=== PATIENT | female | born 1980 | race Caucasian/White ===

== ENCOUNTER 2021-03-01 08:18 | Observation (INO) ==
[2021-03-01] MEDS ORDERED: ONDANSETRON INJ 2 MG/ML 2 ML VIAL IV STA (08:36)
[2021-03-01] MEDS ORDERED: SODIUM CHLORIDE 0.9% 1000ML 1,000 ML IV STA (08:36)
[2021-03-01] MEDS: MoRPHine SULFATE 4 MG/ML 1 ML CARP\\VIAL IV PRN ×3 (08:44→11:38)
[2021-03-01 08:51] LABS: Basophils # (auto) 0.03 K/uL (0-0.2); Basophils % (auto) 0.3 %; Hemoglobin 13.4 g/dL (12.0-16.0); Immature Granulocytes # (auto) 0.03 K/uL (0.00-0.02); Immature Granulocytes % (auto) 0.3 %; Lymphocytes # (auto) 0.95 K/uL (1.2-3.4); Lymphocytes % (auto) 8.8 %; Mean Corpuscular Hemoglobin 28.3 pg (25-34); Mean Corpuscular Hgb Conc 33.5 g/dL (32-36); Mean Corpuscular Volume 84.6 fL (80-100); Mean Platelet Volume 10.1 fL (7.4-10.4); Monocytes # (auto) 0.29 K/uL (0.11-0.59); Monocytes % (auto) 2.7 %; Neutrophils # (auto) 9.45 K/uL (1.4-6.5); Neutrophils % (auto) 87.9 %; Platelet Count 228 K/uL (130-400); RDW Coefficient of Variation 13.1 % (11.5-14.5); RDW Standard Deviation 40.1 fL (36.4-46.3); Red Blood Count 4.73 M/uL (4.2-5.4); White Blood Count 10.75 K/uL (4.8-10.8)
[2021-03-01 08:58] LABS: Appearance Urine Turbid (Clear); Bacteria Urine Automated 1+ (Negative); Bilirubin Urine Negative (Negative); Blood Urine 1+ (Negative); Color Urine Yellow; Epithelial Cell Urine Auto >30 /lpf (0-5); Glucose Urine UA Negative (Negative); Ketones Urine 3+ (Negative); Leukocyte Esterase Urine Trace (Negative); Nitrite Urine Negative (Negative); RBC Urine Automated >30 /hpf (0-4); Specific Gravity Urine 1.025 (1.000-1.030); Urobilinogen Urine Negative (Negative); pH Urine 8.5 (4.5-7.5)
[2021-03-01 08:59] LABS: Protein Urine Trace (Negative)
[2021-03-01 09:10] LABS: Albumin Level 4.3 gm/dl (3.4-5.0); BUN Creatinine Ratio 16.9 (10-20); Est GFR (Non-African American) 88.9 ml/min; Potassium 3.4 mmol/L (3.5-5.1)
[2021-03-01 09:13] LABS: Albumin Globulin Ratio 1.3 (0.9-2); Bilirubin,Total 0.7 mg/dl (0.2-1); Globulin 3.4 gm/dl (2.5-4.0); Total Protein 7.7 gm/dl (6.4-8.2)
[2021-03-01 09:14] LABS: Pregnancy Test, Serum Negative (Negative)
--- NOTE | 2021-03-01 09:17 | Emergency Department Note ---
Impression & Plan Hydronephrosis with urinary obstruction due to ureteral calculus, Acute right flank pain, Liver mass ED Provider Note NAME: THOMAS COPELAND AGE: 40 SEX: F : 1980 ARRIVES VIA: Walk-In INFORMANT: Patient, ED PROVIDER(S): Winston Hay DO CHIEF COMPLAINT: Flank pain HPI: The patient is a 40-year-old female who presented to the emergency department with her for an evaluation of flank pain. The patient describes a burning sensation on his right flank. 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 She is unsure if she hurt her back necessarily but ever since that time has had right-sided back pain. She states the pain does radiate into her right hip and sometimes down her right leg. She denies having any numbness or weakness in the legs. She has had pain so bad that she becomes nauseated. She denies having any fevers. She denies having any recent trauma. The patient states pain is worsened with ambulation as well as bending forward. She is not been seen by her primary care physician for the symptoms. The patient states that pain is moderate to severe and worsens with any movement. She has tried medications at home without relief. The patient has noticed some difficulty urinating but states that ever since she had children she has noticed similar difficulty urinating. She denies having any hematuria. She denies having any dysuria. ROS: See above HPI for pertinent positives & negatives. A total of 10 systems reviewed and were otherwise negative. PAST MEDICAL HISTORY: See Below PAST SURGICAL HISTORY: See Below FAMILY HISTORY: See Below SOCIAL HISTORY: See Below HOME MEDICATIONS: See Below ALLERGIES: See Below VITALS: See Below PHYSICAL EXAMINATION: GENERAL: The patient is awake and alert. The patient is very anxious appearing and appears to be in significant pain. EYES: The conjunctivae are clear. The pupils are round and reactive. EARS, NOSE, MOUTH AND THROAT: The nose is without any evidence of any deformity. NECK: The neck is nontender and supple. RESPIRATORY: Normal respiratory effort is noted there is no evidence of wheezing rhonchi or rales CARDIOVASCULAR: Regular rate and rhythm noted there no murmurs rubs or gallops normal S1 normal S2. GASTROINTESTINAL: The abdomen is soft. Abdomen is nontender. BACK: There was some midline tenderness in the upper lumbar spine. There was no step-off. Range of motion appears intact. There was significant right CVA tenderness to percussion. MUSCULOSKELETAL/EXTREMITIES: There is no evidence of gross deformity full range of motion is noted in the hips and shoulders. SKIN: There is no obvious evidence of any rash. There are no petechiae, pallor or cyanosis noted. NEUROLOGIC: Patient is awake alert and oriented x3 strength is symmetric patellar reflexes are 2+ bilaterally. Great toe raise is symmetric. Achilles tendon reflexes are 2+ bilaterally. MEDICAL DECISION MAKING: The patient is a 40-year-old female who presented to the emergency department for an evaluation of severe right flank pain. The patient was treated with IV fluids and IV pain medication in the emergency department. She was reevaluated multiple times. I discussed the patient's laboratory and radiographic studies with her. She was found to have signs of ureteral obstruction secondary to a distal ureteral calculus. Her pain was very difficult to manage in the emergency department. She required multiple doses of pain medication. For this reason I did discuss her case with the on-call [facility] hospitalist. They have agreed to evaluate the patient in the emergency department for further management and disposition. The patient was also found to have an incidental mass in her liver. This will require further characterization with other imaging. Initially CAT scan of the liver was ordered in the emergency department but after evaluation by the admitting team they feel they can facilitate MRI better as either an inpatient or as an outpatient as to limit the patient's radiation dose. I do feel this is a good option. Triage Nursing notes reviewed. Prior medical records reviewed Vital Signs: reviewed and remarkable for tachycardia. Differential diagnosis: Renal colic, UTI, appendicitis, diverticulitis, mesenteric ischemia, aortic pathology, infections, inflammatory bowel disease, PUD, biliary pathology, as well as other pathologies. ER treatment provided: See below Diagnostics interpreted by me: ECG: none Cardiac Monitoring: An order was placed for continuous cardiac monitoring. The monitor shows a rate of 103 bpm with sinus tachycardia rhythm. Laboratory studies: As stated above and show below. Imaging studies: See below Consultation(s): none Past Med/Surg History Medical History Allergic rhinitis Anxiety disorder Hypothyroidism Incomplete right bundle branch block PMDD (premenstrual dysphoric disorder) Surgical History No significant past surgical history Family History Mother Ovarian cancer Grandfather (Maternal) Colorectal cancer Denies family history of Prostate cancer Diabetes Myocardial infarction Breast cancer Lung cancer Stroke Social History Smoking Status: Never smoker Second Hand Exposure: No; Hx Alcohol Use: No Hx Substance Use: No Preferred Language: Indonesian Visual Impairment: Limited Hearing Ability: Normal Width Stripper Required: No marital status: Current Living Situation: Spouse and Family Current Living Situation Comment: son and daughter current occupational status: employed How many Children do You have: 2 Feels Safe at Home: Yes Childhood Exposure to Second-Hand Smoke: No caffeine: Yes Dental Care, Regularly: Yes Physical Activity Frequency: 1-2 Times per Week Seatbelt Use: always Sunscreen Use: Yes Allergies Allergies Allergy/AdvReac Type Severity Reaction Status Date / Time tetracycline Allergy Severe DIFFICULTY Verified 03/01/21 10:41 SWALLOWING Bactrim Allergy Unknown . Verified 04/07/14 18:17 sulfamethoxazole Allergy Unknown Verified 03/01/21 10:41 trimethoprim Allergy Unknown Verified 03/01/21 10:41 paroxetine [From Paxil] AdvReac Severe suicidal ~ Unverified 03/01/21 10:41 [place] like someone else was in her head citalopram AdvReac Mild Nausea Verified 03/01/21 10:41 Home Meds Home Medications Medication Instructions Recorded Confirmed cetirizine 10 mg tablet (Zyrtec) 10 mg PO DAILY PRN 11/12/20 03/01/21 multivitamin (Daily Multi-Vitamin) 1 tab PO QAM 11/12/20 03/01/21 vitamin B complex (B-Complex) 1 tab PO QAM 11/12/20 03/01/21 yizjwbh-[id number]-[id number] 333 mg-133 1 tab PO BIDM 03/01/21 03/01/21 mg-8.3 mg tablet levothyroxine 100 mcg tablet 0 mcg PO QDD 03/01/21 03/01/21 levothyroxine 88 mcg tablet 88 mcg PO DAILYBB 03/01/21 03/01/21 (Synthroid) tumeric 100 mg-alicia 150 mg-olive 1 cap PO QAM 03/01/21 03/01/21 50 mg-oreg 150 mg-caprylate capsule Previous Rx's Medication Instructions Recorded albuterol sulfate 90 mcg/actuation 1 inh INHALATION QID PRN #8.5 g 05/21/20 aerosol inhaler (ProAir HFA) buspirone 5 mg tablet 5 mg PO TID PRN #90 tab 02/06/21 drospirenone 3 mg-ethinyl 1 tab PO DAILY #28 tab 02/23/21 estradiol 0.03 mg tablet (Yanni (28)) Results & Data (ED) Vital Signs Vital Signs - 24 hr 03/01/21 08:19 03/01/21 09:11 03/01/21 10:00 Temperature 36.8 C Temperature Source Temporal Artery Scan Pulse Rate 95 H 88 Pulse Rate [Left Finger] 65 Pulse Rhythm Regular Regular Pulse Rhythm [Left Finger] Regular Pulse Strength Normal Pulse Strength [Left Finger] Normal Respiratory Rate 18 20 20 Respiratory Effort / Characteristics Non-Labored Spontaneous Non-Labored Spontaneous Respiratory Depth Normal Normal Respiratory Pattern Regular Regular Blood Pressure 136/79 Blood Pressure [Left Arm] 132/62 Blood Pressure Mean 98 Blood Pressure Mean [Left Arm] 85 Blood Pressure Position Sitting Blood Pressure Position [Left Arm] Sitting Pulse Oximetry 100 100 100 Oxygen Delivery Method Room Air Room Air Room Air Sepsis Recent Fever Within 48 Hours No Sepsis New/Unexplained Change in Mental Status No Sepsis Action Taken by Nursing No Action Required 03/01/21 12:55 Temperature Temperature Source Pulse Rate Pulse Rate [Left Finger] 103 H Pulse Rhythm Pulse Rhythm [Left Finger] Regular Pulse Strength Pulse Strength [Left Finger] Normal Respiratory Rate 18 Respiratory Effort / Characteristics Non-Labored Spontaneous Respiratory Depth Normal Respiratory Pattern Regular Blood Pressure Blood Pressure [Left Arm] 128/74 Blood Pressure Mean Blood Pressure Mean [Left Arm] 92 Blood Pressure Position Blood Pressure Position [Left Arm] Sitting Pulse Oximetry 100 Oxygen Delivery Method Room Air Sepsis Recent Fever Within 48 Hours Sepsis New/Unexplained Change in Mental Status Sepsis Action Taken by Retirement Medications Current Medication List: was personally reviewed by me Laboratory Data Attestation: I reviewed the patient's lab results. Result diagrams: 03/01/21 08:42 03/01/21 08:42 Lab Results 03/01/21 03/01/21 03/01/21 Range/Units 08:42 08:42 08:42 WBC 10.75 (4.8-10.8) K/uL RBC 4.73 (4.2-5.4) M/uL Hgb 13.4 (12.0-16.0) g/dL Hct 40.0 (37-47) % MCV 84.6 (80-100) fL MCH 28.3 (25-34) pg MCHC 33.5 (32-36) g/dL RDW Std Deviation 40.1 (36.4-46.3) fL RDW Coeff of Bettie 13.1 (11.5-14.5) % Plt Count 228 (130-400) K/uL MPV 10.1 (7.4-10.4) fL Immature Gran % (Auto) 0.3 % Neut % (Auto) 87.9 % Lymph % (Auto) 8.8 % [place] % (Auto) 2.7 % Eos % (Auto) 0.0 % Baso % (Auto) 0.3 % Neut # (Auto) 9.45 H (1.4-6.5) K/uL Lymph # (Auto) 0.95 L (1.2-3.4) K/uL [place] # (Auto) 0.29 (0.11-0.59) K/uL Eos # (Auto) 0.00 (0-0.5) K/uL Baso # (Auto) 0.03 (0-0.2) K/uL Immature Gran # (Auto) 0.03 H (0.00-0.02) K/uL Sodium 137 (136-145) mmol/L Potassium 3.4 L (3.5-5.1) mmol/L Chloride 105 (98-107) mmol/L Carbon Dioxide 24 (21-32) mmol/L Anion Gap 9.0 (3-11) BUN 14 (7-18) mg/dl Creatinine 0.82 (0.6-1.2) mg/dl Est Cr Clr Drug Dosing 78.0 ml/min Est GFR ( Amer) 103.0 ml/min Est GFR (Non-Af Amer) 88.9 ml/min BUN/Creatinine Ratio 16.9 (10-20) Glucose 113 H (70-99) mg/dl Calcium 9.0 (8.5-10.1) mg/dl Total Bilirubin 0.7 (0.2-1) mg/dl AST 11 L (15-37) U/L ALT 17 (12-78) U/L Alkaline Phosphatase 53 (45-117) U/L Total Protein 7.7 (6.4-8.2) gm/dl Albumin 4.3 (3.4-5.0) gm/dl Globulin 3.4 (2.5-4.0) gm/dl Albumin/Globulin Ratio 1.3 (0.9-2) Lipase 148 (73-393) U/L TSH (0.300-4.500) uIu/ml HCG, Qual Negative (Negative) Urine Color Urine Appearance (Clear) Urine pH (4.5-7.5) Ur Specific [place] (1.000-1.030) Urine Protein (Negative) Urine Glucose (UA) (Negative) Urine Ketones (Negative) Urine Blood (Negative) Urine Nitrite (Negative) Urine Bilirubin (Negative) Urine Urobilinogen (Negative) Ur Leukocyte Esterase (Negative) Urine WBC (Auto) (0-5) /hpf Urine RBC (Auto) (0-4) /hpf U Hyaline Cast (Auto) (0-5) /lpf U Epithel Cells (Auto) (0-5) /lpf Urine Bacteria (Auto) (Negative) COVID-19 Eval Order 03/01/21 03/01/21 03/01/21 Range/Units 08:42 08:42 12:45 WBC (4.8-10.8) K/uL RBC (4.2-5.4) M/uL Hgb (12.0-16.0) g/dL Hct (37-47) % MCV (80-100) fL MCH (25-34) pg MCHC (32-36) g/dL RDW Std Deviation (36.4-46.3) fL RDW Coeff of Bettie (11.5-14.5) % Plt Count (130-400) K/uL MPV (7.4-10.4) fL Immature Gran % (Auto) % Neut % (Auto) % Lymph % (Auto) % [place] % (Auto) % Eos % (Auto) % Baso % (Auto) % Neut # (Auto) (1.4-6.5) K/uL Lymph # (Auto) (1.2-3.4) K/uL [place] # (Auto) (0.11-0.59) K/uL Eos # (Auto) (0-0.5) K/uL Baso # (Auto) (0-0.2) K/uL Immature Gran # (Auto) (0.00-0.02) K/uL Sodium (136-145) mmol/L Potassium (3.5-5.1) mmol/L Chloride (98-107) mmol/L Carbon Dioxide (21-32) mmol/L Anion Gap (3-11) BUN (7-18) mg/dl Creatinine (0.6-1.2) mg/dl Est Cr Clr Drug Dosing ml/min Est GFR ( Amer) ml/min Est GFR (Non-Af Amer) ml/min BUN/Creatinine Ratio (10-20) Glucose (70-99) mg/dl Calcium (8.5-10.1) mg/dl Total Bilirubin (0.2-1) mg/dl AST (15-37) U/L ALT (12-78) U/L Alkaline Phosphatase (45-117) U/L Total Protein (6.4-8.2) gm/dl Albumin (3.4-5.0) gm/dl Globulin (2.5-4.0) gm/dl Albumin/Globulin Ratio (0.9-2) Lipase (73-393) U/L TSH 2.770 (0.300-4.500) uIu/ml HCG, Qual (Negative) Urine Color Yellow Urine Appearance Turbid A (Clear) Urine pH 8.5 H (4.5-7.5) Ur Specific [place] 1.025 (1.000-1.030) Urine Protein Trace H (Negative) Urine Glucose (UA) Negative (Negative) Urine Ketones 3+ H (Negative) Urine Blood 1+ H (Negative) Urine Nitrite Negative (Negative) Urine Bilirubin Negative (Negative) Urine Urobilinogen Negative (Negative) Ur Leukocyte Esterase Trace H (Negative) Urine WBC (Auto) 1-5 (0-5) /hpf Urine RBC (Auto) >30 H (0-4) /hpf U Hyaline Cast (Auto) 1-5 (0-5) /lpf U Epithel Cells (Auto) >30 H (0-5) /lpf Urine Bacteria (Auto) 1+ H (Negative) COVID-19 Eval Order Covid19 at [facility] Administered Medications Hydromorphone HCl (Hydromorphone Inj 0.5 Mg/0.5 Ml Syr) 0.5 mg IV Q15M PRN PRN Reason: Pain Stop: 03/15/21 11:38 Last Admin: 03/01/21 11:42 Dose: 0.5 mg Documented by: [id number] Sodium Chloride (Nss 1000ml) 2,000 mls @ 999 mls/hr IV .Q2H1M ONE Stop: 03/01/21 14:54 Last Admin: 03/01/21 14:00 Dose: 999 mls/hr Documented by: [id number] Discontinued Medications Sodium Chloride (Nss 1000ml) 1,000 mls @ 999 mls/hr IV .Q1H1M STA Stop: 03/01/21 09:36 Last Infusion: 03/01/21 11:47 Dose: 0 mls/hr Documented by: [id number] Admin: 03/01/21 08:44 Dose: 999 mls/hr Documented by: [id number] Ceftriaxone Sodium (Rocephin) 2,000 mg in 70 mls @ 140 mls/hr IV NOW STA Stop: 03/01/21 13:15 Last Admin: 03/01/21 13:22 Dose: 140 mls/hr Documented by: [id number] Morphine Sulfate (Morphine Sulfate 4 Mg/Ml 1 Ml Carp\Vial) 4 mg IV Q15M PRN PRN Reason: Pain Stop: 03/15/21 08:35 Last Admin: 03/01/21 11:38 Dose: 4 mg Documented by: [id number] Admin: 03/01/21 10:25 Dose: 4 mg Documented by: [id number] Admin: 03/01/21 08:44 Dose: 4 mg Documented by: [id number] Ondansetron HCl (Ondansetron Inj 2 Mg/Ml 2 Ml Vial) 4 mg IV NOW STA Stop: 03/01/21 08:37 Last Admin: 03/01/21 08:44 Dose: 4 mg Documented by: [id number] Tamsulosin HCl (Tamsulosin Hcl 0.4 Mg Cap) 0.4 mg PO NOW STA Stop: 03/01/21 14:12 Last Admin: 03/01/21 14:20 Dose: Not Given Documented by: [id number] Tamsulosin HCl (Tamsulosin Hcl 0.4 Mg Cap) Confirm Administered Dose 0.4 mg .ROUTE .Principle Power ONE Stop: 03/01/21 13:49 Last Admin: 03/01/21 13:51 Dose: 0.4 mg Documented by: [id number] Imaging Data Radiologist's Impression: Abdomen/Pelvis CT 03/01/21 08:36 CT SCAN OF THE ABDOMEN AND PELVIS WITHOUT IV CONTRAST CLINICAL HISTORY: Right flank pain. COMPARISON STUDY: No priors. TECHNIQUE: CT scan of the abdomen and pelvis is performed from the lung bases to the proximal femora. Images are reviewed in the axial, sagittal, and coronal planes. IV contrast was not administered for this examination. A dose lowering technique was utilized adhering to the principles of ALARA. CT DOSE: 274.69 mGy.cm FINDINGS: Lung bases: The heart is normal in size and without pericardial effusion. The lung bases are clear. Liver: The unenhanced liver is normal in size, contour, and attenuation. There is no intrahepatic biliary ductal dilatation. There are 2 hepatic cysts which measure up to 3.8 cm. There is an approximately 5 x 5 x 5 cm low-attenuation homogeneous mass lesion suggested inferior to the largest cyst in the inferior right lobe. This is partially exophytic and best seen on image #170. Gallbladder: Unremarkable. Spleen: Normal in size and attenuation. Pancreas: Unremarkable. Adrenal glands: Unremarkable. Kidneys: The unenhanced kidneys are normal in size. A 5 mm obstructing calculus protruding from the right vesicoureteral junction seen on image #356. This causes mild right hydroureteronephrosis. There is associated right-sided perinephric stranding and fluid. There is an additional 2 mm nonobstructing right renal calculus. A 4 mm nonobstructing calculus is noted in the left kidney. There is no left-sided hydronephrosis. There is no evidence of contour deforming renal mass lesion. Abdominal vasculature: The abdominal aorta is normal in course and caliber. Bowel: The small bowel and colon are normal in course and caliber. A portion of the normal appendix is seen on image #274. The appendix is not visualized in entirety. Peritoneum: There is no intraperitoneal free air or abdominal ascites. There is a fat-containing umbilical hernia. Lymphadenopathy: None. Pelvic viscera: The bladder, uterus, and adnexa are normal as visualized. A small volume of free fluid is seen in the cul-de-sac. Skeletal structures: No lytic or blastic lesions are seen. There is a roberta transitional left lumbosacral segment. IMPRESSION: 1. There is a 5 mm obstructing calculus protruding from the right vesicoureteral junction. This causes mild to moderate right hydroureteronephrosis, with associated right-sided perinephric stranding and fluid. 2. Additional nonobstructing renal calculi are seen bilaterally. 3. There is an approximately 5 cm partially exophytic mass lesion arising from the inferior right lobe of the liver. There is an adjacent 3.0 cm cystic stru cture which may also be part of this lesion. This is pathologically indeterminant, and follow-up with a contrast-enhanced liver protocol CT or MRI is recommended for further evaluation. 4. Additional findings as above. ACT 112: Negative or not required by law. Electronically signed by: Eric Holley M.D. 03/01/2021 11:03 AM Discharge Plan Visit Data Chief Complaint: Back Injury/Pain Stated Complaint: LOWER BACK PAIN ED Provider: Winston Hay Discharge Problem: Hydronephrosis with urinary obstruction due to ureteral calculus, Acute right flank pain, Liver mass Patient Disposition: Being Evaluated by Hospitalist Forms Stand Alone Forms: [employer] Prescriptions Prescriptions: No Action buspirone 5 mg tablet 5 mg PO TID PRN (Reason: anxiety) Qty: 90 RF: 2 albuterol sulfate [ProAir HFA] 90 mcg/actuation HFA aerosol inhaler 1 inh inhalation QID PRN (Reason: shortness of breath or wheezing) Qty: 8.5 RF: 1 multivitamin [Daily Multi-Vitamin] Tablet 1 tab PO QAM RF: 0 vitamin B complex [B-Complex] Tablet 1 tab PO QAM RF: 0 cetirizine [Zyrtec] 10 mg tablet 10 mg PO DAILY PRN (Reason: Allergy Symptoms) RF: 0 drospirenone-ethinyl estradiol [Yanni (28)] 3-0.03 mg tablet 1 tab PO DAILY Qty: 28 RF: 5 levothyroxine [L-Thyroxine] 100 mcg Tablet 0 mcg PO QDD RF: 0 pksdqlz-skoozznua-xotm 333-133-8.3 mg Tablet 1 tab PO BIDM RF: 0 tbupohb-lkmf-qhimk-oreg-capryl 100 mg-150 mg- 50 mg-150 mg Capsule 1 cap PO QAM RF: 0 levothyroxine [Synthroid] 88 mcg tablet 88 mcg PO DAILYBB RF: 0 Referrals Referrals: Hugh Serrato MD [Primary Care Provider] -
--- NOTE | 2021-03-01 11:05 | CT Scan Report ---
CT SCAN OF THE ABDOMEN AND PELVIS WITHOUT IV CONTRAST CLINICAL HISTORY: Right flank pain. COMPARISON STUDY: No priors. TECHNIQUE: CT scan of the abdomen and pelvis is performed from the lung bases to the proximal femora. Images are reviewed in the axial, sagittal, and coronal planes. IV contrast was not administered for this examination. A dose lowering technique was utilized adhering to the principles of ALARA. CT DOSE: 274.69 mGy.cm FINDINGS: Lung bases: The heart is normal in size and without pericardial effusion. The lung bases are clear. Liver: The unenhanced liver is normal in size, contour, and attenuation. There is no intrahepatic deena iary ductal dilatation. There are 2 hepatic cysts which measure up to 3.8 cm. There is an approximate ly 5 x 5 x 5 cm low-attenuation homogeneous mass lesion suggested inferior to the largest cyst in the inferior right lobe. This is partially exophytic and best seen on image #170. Gallbladder: Unremarkable. Spleen: Normal in size and attenuation. Pancreas: Unremarkable. Adrenal glands: Unremarkable. Kidneys: The unenhanced kidneys are normal in size. A 5 mm obstructing calculus protruding from the r ight vesicoureteral junction seen on image #356. This causes mild right hydroureteronephrosis. There is associated right-sided perinephric stranding and fluid. There is an additional 2 mm nonobstructing right renal calculus. A 4 mm nonobstructing calculus is noted in the left kidney. There is no left-s ided hydronephrosis. There is no evidence of contour deforming renal mass lesion. Abdominal vasculature: The abdominal aorta is normal in course and caliber. Bowel: The small bowel and colon are normal in course and caliber. A portion of the normal appendix i s seen on image #274. The appendix is not visualized in entirety. Peritoneum: There is no intraperitoneal free air or abdominal ascites. There is a fat-containing umbi lical hernia. Lymphadenopathy: None. Pelvic viscera: The bladder, uterus, and adnexa are normal as visualized. A small volume of free flui d is seen in the cul-de-sac. Skeletal structures: No lytic or blastic lesions are seen. There is a hemitransitional left lumbosacr al segment. IMPRESSION: 1. There is a 5 mm obstructing calculus protruding from the right vesicoureteral junction. This cause s mild to moderate right hydroureteronephrosis, with associated right-sided perinephric stranding and fluid. 2. Additional nonobstructing renal calculi are seen bilaterally. 3. There is an approximately 5 cm partially exophytic mass lesion arising from the inferior right lob e of the liver. There is an adjacent 3.0 cm cystic structure which may also be part of this lesion. T his is pathologically indeterminant, and follow-up with a contrast-enhanced liver protocol CT or MRI is recommended for further evaluation. 4. Additional findings as above. ACT 112: Negative or not required by law. Electronically signed by: Eric Holley M.D. 03/01/2021 11:03 AM
[2021-03-01] MEDS ORDERED: HYDROmorphone INJ 0.5 MG/0.5 ML SYR IV PRN ×2 (11:39→16:15)
[2021-03-01] MEDS ORDERED: cefTRIAXone SODIUM 2,000 MG/70 ML BAG IV STA (12:46)
[2021-03-01] MEDS ORDERED: SODIUM CHLORIDE 0.9% 1000ML 2,000 ML IV ONE (12:54)
--- NOTE | 2021-03-01 12:54 | History & Physical Report ---
Date of Service March 01, 2021 Assessment & Plan (1) Ureterolithiasis: Plan: NSS additional 2L bolus now then LR @ 150ml/hr, start tamsulosin 0.4mg PO, pain relief with acetaminophen/toradol/dilaudid NPO pending urology consult Strain all urine and send for urine stone analysis if any filtrate (2) SARS-CoV-2 positive: Plan: Asymptomatic. CXR clear. Lungs CTAB. Possible false positive. Recommend patient in negative pressure room rather than COVID sharif. (3) Hydronephrosis with urinary obstruction due to ureteral calculus: Plan: Consult urology as above (4) Liver mass: Plan: Incidental finding. Follow with outpatient MRI liver protocol to better evaluat e. Incidental from admission diagnosis. (5) Hypothyroidism: Plan: TSH 2.77 Continue usual levothyroxine dosing (6) Anxiety disorder: Plan: Continue Buspar 5mg TID PRN Plan: VTE Prophylaxis - low risk Diet - NPO pending urology evaluation Disposition - observation status on med/surg Admission and Anticipated Discharge Date Admission Date: March 01, 2021 History of Present Illness Chief Complaint: Right flank pain Primary Care Provider: MD Tammy Miller 40 year old female who presents to the ER with right flank pain. 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 However the right flank pain progressively got worse. Severity 10/10 at worse. Never had a kidney stone before. Getting hot but no objective fever. No dysuria. In the ER after the patient was seen her SARS-COV-2 test was reported positive. She has already had COVID-19 in April 2020. She is asymptomatic from this currently. Allergies Allergy/AdvReac Type Severity Reaction Status Date / Time tetracycline Allergy Severe DIFFICULTY Verified 03/01/21 10:41 SWALLOWING Bactrim Allergy Unknown . Verified 04/07/14 18:17 sulfamethoxazole Allergy Unknown Verified 03/01/21 10:41 trimethoprim Allergy Unknown Verified 03/01/21 10:41 paroxetine [From Paxil] AdvReac Severe suicidal ~ Unverified 03/01/21 10:41 [facility] like someone else was in her head citalopram AdvReac Mild Nausea Verified 03/01/21 10:41 Home Medications Medication Instructions Recorded Confirmed Type albuterol sulfate 90 mcg/actuation 1 inh INHALATION QID PRN #8.5 g 05/21/20 03/01/21 Rx aerosol inhaler (ProAir HFA) cetirizine 10 mg tablet (Zyrtec) 10 mg PO DAILY PRN 11/12/20 03/01/21 History multivitamin (Daily Multi-Vitamin) 1 tab PO QAM 11/12/20 03/01/21 History vitamin B complex (B-Complex) 1 tab PO QAM 11/12/20 03/01/21 History buspirone 5 mg tablet 5 mg PO TID PRN #90 tab 02/06/21 03/01/21 Rx drospirenone 3 mg-ethinyl 1 tab PO DAILY #28 tab 02/23/21 03/01/21 Rx estradiol 0.03 mg tablet (Yanni (28)) [id number] 333 mg-133 1 tab PO BIDM 03/01/21 03/01/21 History mg-8.3 mg tablet levothyroxine 100 mcg tablet 0 mcg PO QDD 03/01/21 03/01/21 History levothyroxine 88 mcg tablet 88 mcg PO DAILYBB 03/01/21 03/01/21 History (Synthroid) tumeric 100 mg-alicia 150 mg-olive 1 cap PO QAM 03/01/21 03/01/21 History 50 mg-oreg 150 mg-caprylate capsule Past Med/Surg History Medical History Allergic rhinitis Anxiety disorder Hypothyroidism Incomplete right bundle branch block PMDD (premenstrual dysphoric disorder) Surgical History No significant past surgical history Family History Mother Ovarian cancer Grandfather (Maternal) Colorectal cancer Denies family history of Prostate cancer Diabetes Myocardial infarction Breast cancer Lung cancer Stroke Social History Smoking Status: Never smoker Second Hand Exposure: No; Do You Dip or Chew Tobacco: No; Hx Alcohol Use: No Hx Substance Use: No Preferred Language: Turkmen Visual Impairment: Limited Hearing Ability: Normal Infant Caregiver Required: No Beliefs That Will Affect Care: None marital status: Current Living Situation: Spouse and Family Current Living Situation Comment: son and daughter current occupational status: employed How many Children do You have: 2 Other Information That Helps Us Care for You: No Feels Safe at Home: Yes Safety Concerns: Feels Safe At This Time Childhood Exposure to Second-Hand Smoke: No caffeine: Yes Dental Care, Regularly: Yes Physical Activity Frequency: 1-2 Times per Week Seatbelt Use: always Sunscreen Use: Yes Assistive Devices: Glasses Review of Systems Review of Systems: All systems reviewed & are unremarkable except as noted in HPI & below Physical Exam Constitutional: WD/WN, vitals as above ENMT: external ear and nose normal, oropharynx normal Respiratory: normal respiratory effort, lungs clear to auscultation Cardiovascular: RRR, no murmur, no edema Gastrointestinal (Abdomen): normal bowel sounds, soft, nontender, no hepatosplenomegaly Skin: no rashes, warm and dry Neurologic: moves all extremities and awake; not confused Psychiatric: A+Ox3, euthymic affect Genitourinary: + CVA tenderness (right) Results & Data Results & Data ([facility]) Vital Signs (Past 12 Hours) Vital Signs Temp Pulse Pulse Resp BP BP Pulse Ox 03/01/21 10:00 65 20 132/62 100 03/01/21 09:11 88 20 100 03/01/21 08:19 36.8 C 95 H 18 136/79 100 Diagnostic Findings XR chest 1V portable CLINICAL HISTORY: COVID-19 positive COMPARISON STUDY: Chest radiograph April 15, 2016. FINDINGS: Lung volumes are normal. Lungs are clear. There is no pneumothorax or pleural effusion. Cardiac size is normal. Mediastinal contours are normal. There is no evidence for pulmonary edema. IMPRESSION: No acute cardiopulmonary findings. CT SCAN OF THE ABDOMEN AND PELVIS WITHOUT IV CONTRAST CLINICAL HISTORY: Right flank pain. COMPARISON STUDY: No priors. TECHNIQUE: CT scan of the abdomen and pelvis is performed from the lung bases to the proximal femora. Images are reviewed in the axial, sagittal, and coronal planes. IV contrast was not administered for this examination. A dose lowering technique was utilized adhering to the principles of ALARA. CT DOSE: 274.69 mGy.cm FINDINGS: Lung bases: The heart is normal in size and without pericardial effusion. The lung bases are clear. Liver: The unenhanced liver is normal in size, contour, and attenuation. There is no intrahepatic biliary ductal dilatation. There are 2 hepatic cysts which measure up to 3.8 cm. There is an approximately 5 x 5 x 5 cm low-attenuation diana ogeneous mass lesion suggested inferior to the largest cyst in the inferior right lobe. This is partially exophytic and best seen on image #170. Gallbladder: Unremarkable. Spleen: Normal in size and attenuation. Pancreas: Unremarkable. Adrenal glands: Unremarkable. Kidneys: The unenhanced kidneys are normal in size. A 5 mm obstructing calculus protruding from the right vesicoureteral junction seen on image #356. This causes mild right hydroureteronephrosis. There is associated right-sided perinephric stranding and fluid. There is an additional 2 mm nonobstructing right renal calculus. A 4 mm nonobstructing calculus is noted in the left kidney. There is no left-sided hydronephrosis. There is no evidence of contour deforming renal mass lesion. Abdominal vasculature: The abdominal aorta is normal in course and caliber. Bowel: The small bowel and colon are normal in course and caliber. A portion of the normal appendix is seen on image #274. The appendix is not visualized in entirety. Peritoneum: There is no intraperitoneal free air or abdominal ascites. There is a fat-containing umbilical hernia. Lymphadenopathy: None. Pelvic viscera: The bladder, uterus, and adnexa are normal as visualized. A small volume of free fluid is seen in the cul-de-sac. Skeletal structures: No lytic or blastic lesions are seen. There is a hemitransitional left lumbosacral segment. IMPRESSION: 1. There is a 5 mm obstructing calculus protruding from the right vesicoureteral junction. This causes mild to moderate right hydroureteronephrosis, with associated right-sided perinephric stranding and fluid. 2. Additional nonobstructing renal calculi are seen bilaterally. 3. There is an approximately 5 cm partially exophytic mass lesion arising from the inferior right lobe of the liver. There is an adjacent 3.0 cm cystic structure which may also be part of this lesion. This is pathologically indeterminant, and follow-up with a contrast-enhanced liver protocol CT or MRI is recommended for further evaluation. 4. Additional findings as above. Medications Administered ER Medications Given: NSS 1L bolus Morphine 4mg IV Ondansetron 4mg IV Dilaudid 0.5mg IV Code Status & VTE Plan Code Status Full VTE Prophylaxis Plan VTE Prophylaxis will be ordered: No PG Care Time/CCT Total # of Minutes Spent Total Time Spent with Patient: Total time spent is greater than 50% in coordination of care (as documented) at patient's floor/unit and/or counseling patient: Coding Level of Care Code INT OBSERVATION CARE 50M LVL 2 Diagnoses Ureterolithiasis N20.1 SARS-CoV-2 positive U07.1 Hydronephrosis with urinary obstruction due to ureteral calculus N13.2 Liver mass R16.0 Hypothyroidism E03.9 Anxiety disorder F41.9
[2021-03-01] MEDS ORDERED: TAMSULOSIN HCL 0.4 MG CAP ONE (13:48)
[2021-03-01] MEDS ORDERED: TAMSULOSIN HCL 0.4 MG CAP PO STA (14:11)
[2021-03-01] MEDS ORDERED: ONDANSETRON INJ 2 MG/ML 2 ML VIAL IV PRN (16:15)
[2021-03-01] MEDS ORDERED: KETOROLAC TROMETHAMINE 15 MG/ML VIAL IV PRN (16:15)
[2021-03-01] MEDS ORDERED: CETIRIZINE HCL 10 MG TABLET PO PRN (16:15)
[2021-03-01] MEDS ORDERED: ZINC PO SCH (17:00)
[2021-03-01] MEDS ORDERED: CALCIUM PO SCH (17:00)
[2021-03-01] MEDS ORDERED: MAGNESIUM PO SCH (17:00)
[2021-03-01] MEDS: LACTATED RINGER'S 1,000 ML IV SCH ×2 (17:26→23:02)
--- NOTE | 2021-03-01 17:34 | XRay Report ---
XR chest 1V portable CLINICAL HISTORY: COVID-19 positive COMPARISON STUDY: Chest radiograph April 15, 2016. FINDINGS: Lung volumes are normal. Lungs are clear. There is no pneumothorax or pleural effusion. Car diac size is normal. Mediastinal contours are normal. There is no evidence for pulmonary edema. IMPRESSION: No acute cardiopulmonary findings. ACT 112: Negative or not required by law. Electronically signed by: Drake Case M.D. 03/01/2021 5:33 PM
[2021-03-01] MEDS: ACETAMINOPHEN 325 MG TAB PO PRN ×2 (18:52→23:02)
[2021-03-01] MEDS ORDERED: TAMSULOSIN HCL 0.4 MG CAP PO SCH (21:00)
--- NOTE | 2021-03-01 21:04 | Urology Consultation ---
Date of Consultation March 01, 2021 Assessment & Plan (1) Hydronephrosis with urinary obstruction due to ureteral calculus: Patient has been admitted on the hospitalist service. We recommend proceeding as follows: Provide analgesics Provide antiemetics Hydration with IV fluids Flomax for expulsive therapy Patient has been placed empirically on Rocephin. Urine culture has been obtained and is pending. Antibiotics can be tailored based on results of this culture Patient has been preemptively made n.p.o. after midnight. We will reassess in the morning to determine if cystoscopic intervention will be required. I did discuss with the patient that there is possibility that a 5 mm kidney stone will pass on its own without the need for any further intervention. As noted above she will be reassessed in the morning. History of Present Illness Reason for Consultation: Nephrolithiasis Attending Physician: Darin Garcia MD History of Present Illness Is a 40-year-old female who presented to the [facility] emergency department secondary to right flank pain. The patient said that the pain began last evening. She said that the pain is confined to her right back/flank and radiates to her groin. She said that the pain would come and go without any predictable pattern and she did not note any modifying factors other than some palliation with medicines that were administered in the emergency department. She did have some shakes but denies any chills. She did have a low-grade fever but said her temperature did not exceed 100 degrees. She did have some nausea without vomiting when the pain was present. She notes that she has never had a kidney stone in the past. She denies any dysuria. She also denies any hematuria. Because of her symptomatology she did present to the emergency department as noted above. In the emergency department the patient was noted to be normotensive and afebrile. She did have labs and imaging which I independently reviewed. A chest x-ray showed no evidence of pneumonia. A CT scan of the abdomen and pelvis showed the patient had a 5 mm obstructing calculus at the right ureterovesical junction. This resulted in moderate right hydronephrosis with some right-sided perinephric fat stranding. CBC revealed white blood cell count, hemoglobin, hematocrit, and platelet count were all within the normal range. Immature profile showed her sodium, BUN, and creatinine were within normal range. Potassium was slightly low at 3.4. Urinalysis did show turbid urine with 1+ blood. Nitrite was noted to be negative. Leukocyte Estrace was only trace positive. Patient only had 1-5 white blood cells per high-power field. It is also noteworthy mention the patient had 1+ bacteria. In addition the patient did have a Covid test performed which was noted to be positive. 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 When she is feeling well she does not have any limiting factors such as chest pain or shortness of breath that limit her activity. In addition I did question her about her Covid status. As noted above she did have a positive Covid test. Patient says that she has nonvaccinated for this virus. From a symptomatology standpoint she is asymptomatic as she has not had any loss of her sense of taste or smell. She denies any cough or shortness of breath. She denies any abdominal pain. The best of her knowledge she has not been in close proximity to anyone else who was positive for Covid. At the time of my interview the patient was resting comfortably in bed. She was in no distress. Allergies Allergy/AdvReac Type Severity Reaction Status Date / Time tetracycline Allergy Severe DIFFICULTY Verified 03/01/21 10:41 SWALLOWING Bactrim Allergy Unknown . Verified 04/07/14 18:17 sulfamethoxazole Allergy Unknown Verified 03/01/21 10:41 trimethoprim Allergy Unknown Verified 03/01/21 10:41 paroxetine [From Paxil] AdvReac Severe suicidal ~ Unverified 03/01/21 10:41 [place] like someone else was in her head citalopram AdvReac Mild Nausea Verified 03/01/21 10:41 Home Medications Medication Instructions Recorded Confirmed Type albuterol sulfate 90 mcg/actuation 1 inh INHALATION QID PRN #8.5 g 05/21/20 03/01/21 Rx aerosol inhaler (ProAir HFA) cetirizine 10 mg tablet (Zyrtec) 10 mg PO DAILY PRN 11/12/20 03/01/21 History multivitamin (Daily Multi-Vitamin) 1 tab PO QAM 11/12/20 03/01/21 History vitamin B complex (B-Complex) 1 tab PO QAM 11/12/20 03/01/21 History buspirone 5 mg tablet 5 mg PO TID PRN #90 tab 02/06/21 03/01/21 Rx drospirenone 3 mg-ethinyl 1 tab PO DAILY #28 tab 02/23/21 03/01/21 Rx estradiol 0.03 mg tablet (Yanni (28)) [id number] 333 mg-133 1 tab PO BIDM 03/01/21 03/01/21 History mg-8.3 mg tablet levothyroxine 100 mcg tablet 0 mcg PO QDD 03/01/21 03/01/21 History levothyroxine 88 mcg tablet 88 mcg PO DAILYBB 03/01/21 03/01/21 History (Synthroid) tumeric 100 mg-alicia 150 mg-olive 1 cap PO QAM 03/01/21 03/01/21 History 50 mg-oreg 150 mg-caprylate capsule Patient History Medical History Allergic rhinitis Anxiety disorder Hypothyroidism Incomplete right bundle branch block PMDD (premenstrual dysphoric disorder) Surgical History No significant past surgical history Family History Mother Ovarian cancer Grandfather (Maternal) Colorectal cancer Denies family history of Prostate cancer Diabetes Myocardial infarction Breast cancer Lung cancer Stroke Social History Smoking Status: Never smoker Second Hand Exposure: No; Do You Dip or Chew Tobacco: No; Hx Alcohol Use: No Hx Substance Use: No Preferred Language: Norwegian Visual Impairment: Limited Hearing Ability: Normal 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 Beliefs That Will Affect Care: None marital status: Current Living Situation: Spouse and Family Current Living Situation Comment: son and daughter current occupational status: employed How many Children do You have: 2 Other Information That Helps Us Care for You: No Feels Safe at Home: Yes Safety Concerns: Feels Safe At This Time Childhood Exposure to Second-Hand Smoke: No caffeine: Yes Dental Care, Regularly: Yes Physical Activity Frequency: 1-2 Times per Week Seatbelt Use: always Sunscreen Use: Yes Assistive Devices: Glasses Review of Systems Constitutional: + fever (Low-grade); no chills Eyes: no diplopia Ear, Nose, Mouth, Throat: no ear pain and no sore throat Respiratory: no cough and no dyspnea Cardiovascular: no chest pain Gastrointestinal: + nausea; no abdominal pain and no vomiting Genitourinary: + flank pain (Right sided); no dysuria and no hematuria Musculoskeletal: + back pain (Right flank) Integumentary: no rash Neurologic: no localized weakness Physical Exam Constitutional: well developed and well nourished; no acute distress Eyes: no conjunctival abnormality ENMT: Ears: no hearing impairment and no external ear abnormality Mouth: no oropharynx abnormality Neck: trachea midline Respiratory: normal respiratory effort; no respiratory distress and no labored breathing Cardiovascular: Rate/Rhythm: regular rate and regular rhythm Gastrointestinal (Abdomen): Soft, nontender, nondistended. No pain with palpation. Musculoskeletal: No calf tenderness Skin: no rashes Neurologic: moves all extremities Psychiatric: Orientation: alert and oriented x 3 Genitourinary: + CVA tenderness (Right-sided CVA tenderness noted with percussion.) Results & Data ([facility]) Vital Signs (Past 12 Hours) Vital Signs Temp Pulse Pulse Resp BP Pulse Ox 03/01/21 16:17 36.5 C 92 H 18 125/78 100 03/01/21 15:00 75 16 117/76 100 03/01/21 12:55 103 H 18 128/74 100 03/01/21 10:00 65 20 132/62 100 03/01/21 09:11 88 20 100 PG Care Time/CCT Total # of Minutes Spent Total Time Spent with Patient: Total time spent is greater than 50% in coordination of care (as documented) at patient's floor/unit and/or counseling patient: Coding Level of Care Code 82641 Inpt Consult Level 5 Diagnoses Hydronephrosis with urinary obstruction due to ureteral calculus N13.2
[2021-03-01] MEDS: busPIRone 5 MG TAB PO PRN (21:43)
[2021-03-02] MEDS: LACTATED RINGER'S 1,000 ML IV SCH ×2 (05:36→12:54)
[2021-03-02] MEDS: busPIRone 5 MG TAB PO PRN (05:43)
[2021-03-02] MEDS ORDERED: LEVOTHYROXINE SODIUM 88 MCG TABLET PO SCH (06:30)
[2021-03-02 07:05] LABS: Hematocrit (blood only) 34.7 % (37-47); Hemoglobin 11.7 g/dL (12.0-16.0); Mean Corpuscular Hemoglobin 28.5 pg (25-34); Mean Corpuscular Hgb Conc 33.7 g/dL (32-36); Mean Corpuscular Volume 84.6 fL (80-100); Platelet Count 188 K/uL (130-400); RDW Coefficient of Variation 13.5 % (11.5-14.5); RDW Standard Deviation 41.8 fL (36.4-46.3); White Blood Count 4.78 K/uL (4.8-10.8)
[2021-03-02 07:20] LABS: BUN Creatinine Ratio 10.4 (10-20); Calcium 8.4 mg/dl (8.5-10.1); Creatinine Clr Calc Pharmacy 95.4 ml/min; Est GFR (African American) 126.5 ml/min; Est GFR (Non-African American) 109.2 ml/min; Potassium 3.4 mmol/L (3.5-5.1)
[2021-03-02 07:48] LABS: Basophils # (auto) 0.05 K/uL (0-0.2); Eosinophils # (auto) 0.05 K/uL (0-0.5); Immature Granulocytes # (auto) 0.01 K/uL (0.00-0.02); Immature Granulocytes % (auto) 0.2 %; Lymphocytes # (auto) 1.38 K/uL (1.2-3.4); Lymphocytes % (auto) 28.9 %; Monocytes # (auto) 0.33 K/uL (0.11-0.59); Monocytes % (auto) 6.9 %; Neutrophils # (auto) 2.96 K/uL (1.4-6.5)
--- NOTE | 2021-03-02 08:12 | XRay Report ---
KUB CLINICAL HISTORY: right UVJ stone on CT COMPARISON STUDY: CT of the abdomen and pelvis March 01, 2021. FINDINGS: Small bilateral renal calculi are noted. A 2 mm right pelvic calcification corresponds to a phlebolith by CT. The right ureterovesical junction calculus shown on CT of March 01, 2021 is not identified on this examination. IMPRESSION: 1. Right ureterovesical junction calculus shown on CT of March 01, 2021 no longer identified. 2. Pelvic calcifications represent phleboliths. 3. Small bilateral renal calculi. ACT 112: Negative or not required by law. Electronically signed by: Drake Case M.D. 03/02/2021 8:11 AM
[2021-03-02] MEDS ORDERED: VITAMIN B COMPLEX TAB PO SCH (09:00)
[2021-03-02] MEDS ORDERED: MULTIVITAMIN TAB PO SCH (09:00)
[2021-03-02] MEDS ORDERED: [UNRECOGNIZED DRUG - OTHER] PO SCH (09:00)
[2021-03-02] MEDS: ACETAMINOPHEN 325 MG TAB PO PRN (10:18)
[2021-03-02] MEDS ORDERED: cefTRIAXone SODIUM 2,000 MG in DEXTROSE 5% 50 ML IV SCH (13:00)
[2021-03-02] MEDS ORDERED: POTASSIUM CHLORIDE CRTAB 20 MEQ TABCR PO ONE (13:28)
--- NOTE | 2021-03-02 15:01 | Discharge Summary ---
Date of Service March 02, 2021 Admission HPI Per Admitting Provider Tammy Gucci 40 year old female who presents to the ER with right flank pain. 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 However the right flank pain progressively got worse. Severity 10/10 at worse. Never had a kidney stone before. Getting hot but no objective fever. No dysuria. In the ER after the patient was seen her SARS-COV-2 test was reported positive. She has already had COVID-19 in April 2020. She is asymptomatic from this currently. Admission Exam Per Admitting Provider Constitutional: WD/WN, vitals as above ENMT: external ear and nose normal, oropharynx normal Respiratory: normal respiratory effort, lungs clear to auscultation Cardiovascular: RRR, no murmur, no edema Gastrointestinal (Abdomen): normal bowel sounds, soft, nontender, no hepatosplenomegaly Skin: no rashes, warm and dry Neurologic: moves all extremities and awake; not confused Psychiatric: A+Ox3, euthymic affect Genitourinary: + CVA tenderness (right) Principal Diagnosis Right ureteral stone Discharge Exam Constitutional average body habitus; no acute distress Eyes + anicteric sclerae ENMT Ears: no hearing impairment Neck normal visual inspection Respiratory normal respiratory effort, lungs clear to auscultation Cardiovascular RRR, no murmur, no edema Gastrointestinal (Abdomen) Inspection/Auscultation: normal bowel sounds Percussion/Palpation: + abdomen tender (suprapubic tenderness ) and abdomen soft Musculoskeletal Head/Neck/Chest: normocephalic Skin no rashes, warm and dry Psychiatric A+Ox3, euthymic affect Genitourinary + CVA tenderness (right side ) Discharge Data Allergies Allergy/AdvReac Type Severity Reaction Status Date / Time tetracycline Allergy Severe DIFFICULTY Verified 03/01/21 10:41 SWALLOWING Bactrim Allergy Unknown . Verified 04/07/14 18:17 sulfamethoxazole Allergy Unknown Verified 03/01/21 10:41 trimethoprim Allergy Unknown Verified 03/01/21 10:41 paroxetine [From Paxil] AdvReac Severe suicidal ~ Unverified 03/01/21 10:41 [place] like someone else was in her head citalopram AdvReac Mild Nausea Verified 03/01/21 10:41 Consultations 03/01/21 12:49 ED Decision to Admit Stat 03/01/21 12:50 Consult Urology Routine Ordered Studies 03/01/21 08:36 CT abd pelvis wo con Stat Hospital Course (1) Hypokalemia: Potassium 3.4 this AM. Provided 1 dose of potassium chloride 20meq prior to discharge. (2) Hydronephrosis with urinary obstruction due to ureteral calculus: (3) Acute right flank pain: (4) Ureterolithiasis: 5mm right UVJ stone - supplemental management with IVF, Flomax, acetaminophen/toradol/dilaudid - Urine strainer - UC&S pending - Urology consulted Patient reported feeling much better today. She noted some tenderness of the suprapubic region radiating to the right lower back. She reports this felt more like a dull ache or spasm. She denies any dysuria or hematuria. KUB repeated this AM. No stone identified. Phlebolith was noted. Stone ? passed, although not caught in strainer. Discussed with Dr. So from urology who has not yet seen the patient. No need for surgical intervention at this time as pain has improved, no leukocytosis, Cr normal, and patient is afebrile. She will be discharged home today on Flomax, 3 days of Cipro pending UC&S sensitivities, and Rx for oxycodone PRN for pain. Patient is to f/u with [facility] urology in 10 days after COVID quarantine. (5) Hypothyroidism: TSH 2.77 Continue usual levothyroxine dosing (6) Anxiety disorder: Continue Buspar 5mg TID PRN (7) Liver mass: Incidental finding. Follow-up with primary care. Outpatient MRI liver protocol to better evaluate. Incidental from admission diagnosis. (8) SARS-CoV-2 positive: Asymptomatic. CXR clear. Lungs CTAB. Possible false positive? Patient had COVID in April 2020 and was symptomatic at that time. Recommend patient in negative pressure room rather than COVID sharif. Plan: VTE Prophylaxis - low risk Diet - Regular diet today as no OR intervention planned Disposition - observation status on med/surg Total Time Total Time Spent Total Time Spent (In Minutes): >30 minutes Total Time Includes: Examination of the Patient, Discharge Planning, Medication Reconciliation and Communication With Other Providers Discharge Plan Discharge Items Patient Disposition: Home - Self-Care Reason For Visit: URETEROLITHIASIS Discharge Diagnosis: Right ureteral stone Activity: Resume your previous activity Driving/Machine Use: Do not drive if taking narcotics. Non-emergency contact: Primary Care Provider Call non-emergency contact if: you have any medication questions, your symptoms worsen, your pain is not controlled and you have a fever Follow-up/Referrals: Hugh Serrato MD [Primary Care Provider] - 03/08/21 11:00 am (Stephanie Knox PA-C) Diet: Regular Addtl Attending Provider Instructions: Follow-up with [facility] urology in 10 days after COVID quarantine. Their phone number is [phone]. Follow-up primary care in 10-14 days for incidental liver mass found on CT scan after COVID quarantine. You have tested positive for COVID 19. Please quarantine at home away from family and other individuals for 10 days. Please go to the ED if you develop difficulty breathing. Pending Studies at Discharge: No Stand-Alone Forms: My [facility] Medications and DC Order Prescriptions: New tamsulosin 0.4 mg Capsule 0.4 mg PO HS 10 Days Qty: 10 RF: 0 Continued buspirone 5 mg tablet 5 mg PO TID PRN (Reason: anxiety) Qty: 90 RF: 2 albuterol sulfate [ProAir HFA] 90 mcg/actuation HFA aerosol inhaler 1 inh inhalation QID PRN (Reason: shortness of breath or wheezing) Qty: 8.5 RF: 1 multivitamin [Daily Multi-Vitamin] Tablet 1 tab PO QAM RF: 0 vitamin B complex [B-Complex] Tablet 1 tab PO QAM RF: 0 cetirizine [Zyrtec] 10 mg tablet 10 mg PO DAILY PRN (Reason: Allergy Symptoms) RF: 0 drospirenone-ethinyl estradiol [Yanni (28)] 3-0.03 mg tablet 1 tab PO DAILY Qty: 28 RF: 5 levothyroxine 100 mcg Tablet 0 mcg PO QDD RF: 0 bokthqo-lafjwupan-nvqy 333-133-8.3 mg Tablet 1 tab PO BIDM RF: 0 fjgtfkw-ybfw-whygx-oreg-capryl 100 mg-150 mg- 50 mg-150 mg Capsule 1 cap PO QAM RF: 0 levothyroxine [Synthroid] 88 mcg tablet 88 mcg PO DAILYBB RF: 0 No Action tramadol 50 mg tablet 25 - 50 mg PO BID PRN (Reason: pain) Qty: 30 RF: 0 Discharge Orders: Discharge Order (Routine); Ordered 03/02/21 Ordered By: Amy Pena Admission Data Admit Date/Time: 03/01/21 12:52 Attending Provider: Josiah Paris Admit Provider: Darin Garcia Primary Care Provider: Hugh Serrato Other Providers: Darin Garcia ; Román So Other Interventions: Discharge Summary Assessment (RN) Last Done: 03/02/21 14:15 Supervising Physician Co-Signing Physician Notes Patient seen and examined on the day of discharge. I agree with the discharge summary by Amy SHARIF. I have reviewed the chart including labs, imaging and plans for discharge. patient doing much better, pain resolved, discussed that stone likely passed as it was 5mm discussed that we can give her a had for toilet, strain urine, take stone to PCP which can be analyzed discussed that she has other stones in the kidneys stay very well hydrated, avoid excess tea/soda - Ureteral stone, 5mm, causing sever pain: stone passed with IV hydration, pain control, Flomax no cystoscopy needed, strain urine, send stone for analysis, can follow up with PCP, perhaps refer to urology but not urgent - Liver mass: completely incidental finding, refer to PCP to arrange for Liver protocol CT or MRI of liver to better determine report: There is an approximately 5 cm partially exophytic mass lesion arising from the inferior right lobe of the liver. There is an adjacent 3.0 cm cystic structure which may also be part of this lesion. This is pathologically indeterminant, and follow-up with a contrast-enhanced liver protocol CT or MRI is recommended for further evaluation. Coding Level of Care Code 08384 OBS Care - Discharge Diagnoses Hypokalemia E87.6 Hydronephrosis with urinary obstruction due to ureteral calculus N13.2 Acute right flank pain R10.9 Ureterolithiasis N20.1 Hypothyroidism E03.9 Anxiety disorder F41.9 Liver mass R16.0 SARS-CoV-2 positive U07.1
== END 2021-03-02 16:44 | disposition home or self-care (01) ==
LOC: ED 08:18 → 3W 08:18 → SUATTDRO 12:52 → 3W 15:29 → 3E 19:23